=== PATIENT | female | born 1970 | race Two or more races ===

== ENCOUNTER → 2019-08-11 | Outpatient (CLI) | payer OTHER ==
--- NOTE | 2019-08-11 08:10 | WOMENS IMAGING REPORT ---
EXAM DESCRIPTION: U/S ABDOMEN TOTAL IMAGES COMPLETED DATE/TIME: 08/11/2019 7:43 am REASON FOR STUDY: B18.1 CHRONIC VIRAL HEPATITIS B WITHOUT DELTA-AGENT B18.1 CHRONIC VIRAL HEPATITIS B WITHOUT DELTA-AGENT COMPARISON: None. TECHNIQUE: Dynamic and static grayscale images acquired of the abdomen and recorded on PACS. Additio nal selected color Doppler and spectral images recorded. Note: Study does not meet criteria for complete doppler/duplex scan LIMITATIONS: None. FINDINGS: PANCREAS: No masses. Visualized pancreatic duct normal caliber. LIVER: No masses. Echotexture normal. LIVER VASCULATURE: Normal directional flow of the main portal vein and hepatic veins. GALLBLADDER: No stones. Normal wall thickness. No pericholecystic fluid. ULTRASOUND-DETECTED CHOWDHURY'S SIGN: Negative. INTRAHEPATIC DUCTS AND COMMON DUCT: CBD and intrahepatic ducts normal caliber. No filling defects. INFERIOR VENA CAVA: Normal flow. AORTA: No aneurysm. RIGHT KIDNEY: Normal size. Normal echogenicity. No solid or suspicious masses. No hydronephros is. No calcifications. LEFT KIDNEY: Normal size. Normal echogenicity. No solid or suspicious masses. No hydronephrosi s. No calcifications. SPLEEN: Normal size. No solid masses. PERITONEAL AND PLEURAL SPACES: No ascites or effusions. OTHER: No other significant finding. IMPRESSION: NORMAL ABDOMINAL ULTRASOUND. TECHNICAL DOCUMENTATION: JOB ID: [id number] 2010 [employer]- All Rights Reserved Reading location - IP/workstation name: [email or web address]
== END ==
LOC: WI 06:55
DX: B18.1 Chronic viral hepatitis B without delta-agent (principal); N28.9 Disorder of kidney and ureter, unspecified
CPT/HCPCS: 76700

== ENCOUNTER 2019-11-10 13:48 | Emergency (ER) | payer OTHER ==
--- NOTE | 2019-11-10 14:24 | ER Document Report ---
ED Medical Screen (RME) - General Chief Complaint: Upper Abdominal Pain Stated Complaint: RIGHT SIDE FLANK PAIN Time Seen by Provider: 11/10/19 14:17 Primary Care Provider: OSCAR PEARSON [Primary Care Provider] - Follow up as needed Mode of Arrival: Ambulatory Information source: Patient Notes: 49-year-old female presents to ED for sharp right upper quadrant abdominal pain. She states it started yesterday and last night it got worse and then certain movements is very bad today other times is done her. She states she does have a history of hepatitis B and a hysterectomy. She states she does not drink smoke or use any drugs. She is alert oriented respirations regular nonlabored speaking in full sentences. She does speak French but her helps her to understand what she was saying because she is from [facility] but he understands what she saying. I have greeted and performed a rapid initial assessment of this patient. A comprehensive ED assessment and evaluation of the patient, analysis of test results and completion of medical decision making process will be conducted by an additional ED providers. - Related Data Allergies/Adverse Reactions: No Known Allergies Allergy (Unverified 11/10/19 14:15) Physical Exam - Vital signs Vitals: Temp Pulse Resp BP Pulse Ox 98.7 F 67 18 114/70 100 11/10/19 13:51 11/10/19 13:51 11/10/19 13:51 11/10/19 13:51 11/10/19 13:51 Course - Vital Signs Vital signs: Temp Pulse Resp BP Pulse Ox 98.7 F 67 18 114/70 100 11/10/19 13:51 11/10/19 13:51 11/10/19 13:51 11/10/19 13:51 11/10/19 13:51 Doctor's Discharge - Discharge Referrals: OSCAR PEARSON [Primary Care Provider] - Follow up as needed
[2019-11-10 15:15] LABS: ABSOLUTE BASOPHILS # (AUTO) 0.1 10^3/uL (0.0-0.2); ABSOLUTE EOSINOPHILS # (AUTO) 0.1 10^3/uL (0.0-0.6); ABSOLUTE LYMPHOCYTES (AUTO) 2.1 10^3/uL (0.5-4.7); ABSOLUTE MONOCYTES (AUTO) 0.4 10^3/uL (0.1-1.4); ABSOLUTE NEUT (AUTO) 5.8 10^3/uL (1.7-8.2); BASOPHILS % (AUTO) 0.6 % (0-2); EOSINOPHILS % (AUTO) 1.2 % (0-6); HEMATOCRIT 37.5 % (36.0-47.0); HEMOGLOBIN 12.8 g/dL (12.0-15.5); LYMPHOCYTES % (AUTO) 24.7 % (13-45); MEAN CORPUSCULAR HEMOGLOBIN 29.9 pg (27.0-33.4); MEAN CORPUSCULAR HGB CONC 34.2 g/dL (32.0-36.0); MEAN CORPUSCULAR VOLUME 87 fl (80-97); PLATELET COUNT 172 10^3/uL (150-450); RED BLOOD COUNT 4.29 10^6/uL (3.72-5.28); RED CELL DISTRIBUTION WIDTH 13.2 % (11.5-14.0); SEGMENTED NEUTROPHILS % (AUTO) 68.5 % (42-78); TOTAL CELLS COUNTED % (AUTO) 100 %; WHITE BLOOD COUNT 8.4 10^3/uL (4.0-10.5)
[2019-11-10 15:18] LABS: APPEARANCE,URINE CLEAR; BILIRUBIN,URINE NEGATIVE (NEGATIVE); COLOR,URINE YELLOW; GLUCOSE, URINE NEGATIVE (NEGATIVE); KETONES,URINE NEGATIVE (NEGATIVE); LEUKOCYTE ESTERASE,URINE NEGATIVE (NEGATIVE); NITRITE,URINE NEGATIVE (NEGATIVE); PROTEIN,URINE NEGATIVE (NEGATIVE); URINE SPECIFIC GRAVITY 1.016; UROBILINOGEN,URINE NEGATIVE mg/dL (<2.0)
[2019-11-10 15:35] LABS: ALBUMIN 4.6 g/dL (3.5-5.0); ALKALINE PHOSPHATASE 52 U/L (38-126); ANION GAP 6 (5-19); ASPARTATE AMINO TRANSFERASE 24 U/L (14-36); BILIRUBIN,TOTAL 0.4 mg/dL (0.2-1.3); BLOOD UREA NITROGEN 13 mg/dL (7-20); CALCIUM 9.4 mg/dL (8.4-10.2); CARBON DIOXIDE 27 mmol/L (22-30); CHLORIDE 103 mmol/L (98-107); GLUCOSE 95 mg/dL (75-110); POTASSIUM 4.1 mmol/L (3.6-5.0); TOTAL PROTEIN 7.7 g/dL (6.3-8.2)
--- NOTE | 2019-11-10 16:37 | RADIOLOGY REPORT (SQ) ---
EXAM DESCRIPTION: U/S ABDOMEN LIMITED W/O DOP IMAGES COMPLETED DATE/TIME: 11/10/2019 3:49 pm REASON FOR STUDY: Upper quadrant abdominal pain COMPARISON: 08/11/2019 TECHNIQUE: Dynamic and static grayscale images acquired of the abdomen and recorded on PACS. Laviniao kathi selected color Doppler and spectral images recorded. LIMITATIONS: None. FINDINGS: PANCREAS: No masses. Visualized pancreatic duct normal caliber. LIVER: No masses. Echotexture normal. LIVER VASCULATURE: Normal directional flow of the main portal vein and hepatic veins. GALLBLADDER: No stones. No wall thickening. Questionable trace pericholecystic fluid. ULTRASOUND-DETECTED FRANCOIS'S SIGN: Negative. INTRAHEPATIC DUCTS AND COMMON DUCT: CBD measures up to 6.6 mm. No intrahepatic ductal dilation. No obstructing lesion identified. INFERIOR VENA CAVA: Normal flow. AORTA: No aneurysm. RIGHT KIDNEY: Normal size measuring 11.5 cm. Normal echogenicity. No solid or suspicious masses. No hydronephrosis. No calcifications. PERITONEAL AND RIGHT PLEURAL SPACE: No ascites or effusions. OTHER: No other significant findings. IMPRESSION: 1. Mildly dilated CBD measuring up to 6.6 mm. No obstructing lesion or intrahepatic du ctal dilation identified. Recommend correlation with LFTs. MRCP or ERCP could be considered for fur ther characterization. 2. Questionable trace pericholecystic fluid, nonspecific. No gallbladder wall thickening, cholelith iasis or reported sonographic Francois's sign. TECHNICAL DOCUMENTATION: JOB ID: [id number] 2010 [employer]- All Rights Reserved Reading location - IP/workstation name: [email or web address]
[2019-11-10] MEDS ORDERED: METHOCARBAMOL 500 MG TABLET PO ONE (18:58)
--- NOTE | 2019-11-10 19:00 | ER Document Report ---
ED GI/ - General Chief Complaint: Upper Abdominal Pain Stated Complaint: RIGHT SIDE FLANK PAIN Time Seen by Provider: 11/10/19 14:17 Primary Care Provider: OSCAR PEARSON [NO LOCAL MD] - Follow up as needed Mode of Arrival: Ambulatory Information source: Patient Notes: 49-year-old female presents to ED for sharp right upper quadrant abdominal pain. She states it started yesterday and last night it got worse and then certain movements is very bad today other times is done her. She states she does have a history of hepatitis B and a hysterectomy. She states she does not drink smoke or use any drugs. She is alert oriented respirations regular nonlabored speakin g in full sentences. She does speak Serbian but her helps her to understand what she was saying because she is from [facility] but he understands what she saying. - Related Data Allergies/Adverse Reactions: No Known Allergies Allergy (Unverified 11/10/19 14:15) Past Medical History - General Information source: Patient - Social History Smoking Status: Never Smoker Frequency of alcohol use: None Drug Abuse: None Family History: Reviewed & Not Pertinent Patient has homicidal ideation: No GI Medical History: Reports: Hx Hepatitis Past Surgical History: Reports: Hx Hysterectomy - Immunizations Immunizations up to date: Yes Review of Systems - Review of Systems Constitutional: denies: Chills, Fever Gastrointestinal: Abdominal pain. denies: Diarrhea, Nausea, Vomiting -: Yes All other systems reviewed and negative Physical Exam - Vital signs Vitals: Temp Pulse Resp BP Pulse Ox 98.7 F 67 18 114/70 100 11/10/19 13:51 11/10/19 13:51 11/10/19 13:51 11/10/19 13:51 11/10/19 13:51 - Notes Notes: PHYSICAL EXAMINATION: GENERAL: Well-appearing, well-nourished and in no acute distress. HEAD: Atraumatic, normocephalic. EYES: Pupils equal round and reactive to light, extraocular movements intact, conjunctiva are normal. ENT: Nares patent, oropharynx clear without exudates. Moist mucous membranes. NECK: Normal range of motion, supple without lymphadenopathy LUNGS: Breath sounds clear to auscultation bilaterally and equal. No wheezes rales or rhonchi. HEART: Regular rate and rhythm without murmurs ABDOMEN: Soft, nondistended abdomen. No guarding, no rebound. No masses appreciated. Mild intermittent tenderness to the right upper and right lower quadrant. Female : No CVA tenderness Musculoskeletal: Normal range of motion, no pitting or edema. No cyanosis. NEUROLOGICAL: Cranial nerves grossly intact. Normal speech, normal gait. Normal sensory, motor exams PSYCH: Normal mood, normal affect. SKIN: Warm, Dry, normal turgor, no rashes or lesions noted. Course - Re-evaluation Re-evalutation: Laboratory 11/10/19 11/10/19 11/10/19 14:37 14:37 14:37 WBC 8.4 RBC 4.29 Hgb 12.8 Hct 37.5 MCV 87 MCH 29.9 MCHC 34.2 RDW 13.2 Plt Count 172 Lymph % (Auto) 24.7 Gilliam % (Auto) 5.0 Eos % (Auto) 1.2 Baso % (Auto) 0.6 Absolute Neuts (auto) 5.8 Absolute Lymphs (auto) 2.1 Absolute Monos (auto) 0.4 Absolute Eos (auto) 0.1 Absolute Basos (auto) 0.1 Seg Neutrophils % 68.5 Sodium 136.3 L Potassium 4.1 Chloride 103 Carbon Dioxide 27 Anion Gap 6 BUN 13 Creatinine 0.67 Est GFR ( Amer) > 60 Est GFR (MDRD) Non-Af > 60 Glucose 95 Calcium 9.4 Total Bilirubin 0.4 Direct Bilirubin 0.0 Neonat Total Bilirubin Not Reportable Neonat Direct Bilirubin Not Reportable Neonat Indirect Bili Not Reportable AST 24 ALT 15 Alkaline Phosphatase 52 Total Protein 7.7 Albumin 4.6 Lipase 214.5 Urine Color YELLOW Urine Appearance CLEAR Urine pH 6.0 Ur Specific [place] 1.016 Urine Protein NEGATIVE Urine Glucose (UA) NEGATIVE Urine Ketones NEGATIVE Urine Blood SMALL H Urine Nitrite NEGATIVE Urine Bilirubin NEGATIVE Urine Urobilinogen NEGATIVE Ur Leukocyte Esterase NEGATIVE Urine WBC (Auto) 0 Urine RBC (Auto) 1 Squamous Epi Cells Auto 1 Urine Mucus (Auto) RARE Urine Ascorbic Acid NEGATIVE Abdomen Ultrasound 11/10/19 14:22 IMPRESSION: 1. Mildly dilated CBD measuring up to 6.6 mm. No obstructing lesion or intrahepatic ductal dilation identified. Recommend correlation with LFTs. MRCP or ERCP could be considered for further characterization. 2. Questionable trace pericholecystic fluid, nonspecific. No gallbladder wall thickening, cholelithiasis or reported sonographic Francois's sign. Discussed findings of ultrasound with patient and spouse. I gave them a copy of her labs and also her ultrasound as she will need to follow-up with her primary care provider for possibly a repeat ultrasound. Her LFTs are within normal limits and her bilirubin is not elevated. Her exam is benign. She will be discharged home at this time. Strict ED return precautions discussed, patient verbalized understanding and agreement with same - Vital Signs Vital signs: Temp Pulse Resp BP Pulse Ox 97.8 F 65 14 114/62 99 11/10/19 19:16 11/10/19 19:16 11/10/19 19:16 11/10/19 19:16 11/10/19 19:16 - Laboratory Result Diagrams: 11/10/19 14:37 11/10/19 14:37 Laboratory results interpreted by me: 11/10/19 11/10/19 14:37 14:37 Sodium 136.3 L Urine Blood SMALL H Discharge - Discharge Clinical Impression: Abdominal pain Qualifiers: Abdominal location: right upper quadrant Qualified Code(s): R10.11 - Right upper quadrant pain Condition: Stable Disposition: HOME, SELF-CARE Additional Instructions: Your work-up today was reassuring. All of your lab results were normal. I think the pain you are experiencing is likely due to the recent working out that you did. If anything changes with your pain such as increased pain, persistent pain, starting to develop a fever, nausea or vomiting please return to the emergency department. Please follow-up with your primary care provider regarding the findings on the ultrasound. Prescriptions: Methocarbamol [Robaxin 500 mg Tablet] 500 mg PO QID #24 tablet Referrals: LILINO [NO LOCAL MD] - Follow up as needed
[2019-11-10 19:17] VITALS: BP 114/62
== END 2019-11-10 19:18 | disposition home or self-care (01) ==
LOC: ER 13:48
DX: R10.11 Right upper quadrant pain (principal); Z86.19 Personal history of other infectious and parasitic diseases; Z90.710 Acquired absence of both cervix and uterus
CPT/HCPCS: 36415; 76705; 80053; 81001; 83690; 85025; 99284

== ENCOUNTER → 2019-12-01 | Outpatient (CLI) | payer OTHER ==
--- NOTE | 2019-12-01 11:04 | RADIOLOGY REPORT (SQ) ---
EXAM DESCRIPTION: U/S ABDOMEN COMPLETE W/DOPPLER IMAGES COMPLETED DATE/TIME: 12/01/2019 10:53 am REASON FOR STUDY: K83.8 OTHER SPECIFIED DISEASES OF BILIARY TRACT K83.8 OTHER SPECIFIED DISEASES OF BILIARY TRACT COMPARISON: 11/10/2019 TECHNIQUE: Dynamic and static grayscale images acquired of the abdomen and recorded on PACS. Additio nal selected color Doppler and spectral images recorded. Note: Study does not meet criteria for complete doppler/duplex scan LIMITATIONS: None. FINDINGS: PANCREAS: No masses. Visualized pancreatic duct normal caliber. LIVER: No masses. Echotexture normal. LIVER VASCULATURE: Normal directional flow of the main portal vein and hepatic veins. GALLBLADDER: No stones. Normal wall thickness. No pericholecystic fluid. ULTRASOUND-DETECTED CHOWDHURY'S SIGN: Negative. INTRAHEPATIC DUCTS AND COMMON DUCT: CBD and intrahepatic ducts normal caliber. No filling defects. INFERIOR VENA CAVA: Normal flow. AORTA: No aneurysm. RIGHT KIDNEY:Prominent right renal pelvis. No calyx dilatation. Normal size. LEFT KIDNEY: Normal size. Normal echogenicity. No solid or suspicious masses. No hydronephrosis. No calcifications. SPLEEN: Normal size. No solid masses. PERITONEAL AND PLEURAL SPACES: No ascites or effusions. OTHER: No other significant finding. IMPRESSION: Normal abdominal ultrasound. Common bile duct is normal in caliber measured 5 mm on shannen ramirez's exam. TECHNICAL DOCUMENTATION: JOB ID: [id number] 2010 [employer]- All Rights Reserved Reading location - IP/workstation name: [email or web address]
--- NOTE | 2019-12-01 11:06 | RADIOLOGY REPORT (SQ) ---
EXAM DESCRIPTION: HAND BILATERAL 3 VIEWS IMAGES COMPLETED DATE/TIME: 12/01/2019 10:53 am REASON FOR STUDY: PAIN IN L HAND K83.8 OTHER SPECIFIED DISEASES OF BILIARY TRACT COMPARISON: None. EXAM PARAMETERS: NUMBER OF VIEWS: Three views. TECHNIQUE: AP, lateral and oblique radiographic images acquired of the right and left hand. LIMITATIONS: None. FINDINGS: MINERALIZATION: Normal. BONES: No acute fracture or dislocation. No worrisome bone lesions. No significant osteophytes. JOINTS: No erosions. No sayra-articular osteopenia. No chondrocalcinosis. SOFT TISSUES: No swelling. No calcifications. OTHER: No other significant finding. IMPRESSION: NEGATIVE STUDY OF THE RIGHT AND LEFT HANDS. NO EXPLANATION FOR PAIN. TECHNICAL DOCUMENTATION: JOB ID: [id number] 2010 [employer]- All Rights Reserved Reading location - IP/workstation name: [email or web address]
== END ==
LOC: RAD 10:02
PROVIDERS: ATTEND Nurse Practitioner Family
DX: K83.8 Other specified diseases of biliary tract (principal); M79.642 Pain in left hand; M79.641 Pain in right hand
CPT/HCPCS: 76700; 93976

== ENCOUNTER → 2019-12-01 | Outpatient (CLI) | payer OTHER | LOC: OD 11:08 | PROVIDERS: ATTEND Nurse Practitioner Family | DX: M79.642 Pain in left hand (principal); M79.641 Pain in right hand; R10.9 Unspecified abdominal pain | CPT/HCPCS: 36415; 86200; 86431 ==